=== PATIENT | female | born 1960 | race American Indian/Alaskan Native ===

== ENCOUNTER 2017-01-05 12:57 | Outpatient (CLI) | payer OTHER ==
--- NOTE | 2017-01-05 15:52 | Mammography Report ---
Screening mammogram: Routine views demonstrates an intermediate fibroglandular density pattern which is symmetric in distribution. In the central left breast there is a grouping of calcifications in a linear distribution. Calcifications are minimally pleomorphic. No soft tissue component. The findings are otherwise unremarkable bilaterally. No recent prior exam for comparison. CAD used. Impression: Indeterminate left breast calcifications. Recommendation: Magnification views of left breast calcifications. BI-RADS CATEGORY: 0 = Needs additional imaging evaluation ACR BI-RADS MAMMOGRAPHIC CODES: 0 = Needs additional imaging evaluation; 1 = Negative; 2 = Benign; 3 = Probably benign; 4 = Suspicious; 5 = Malignant; 6 = Known biopsy-proven malignancy COMMENT: 1. Dense breast tissue, i.e., adenosis, fibrocystic changes, etc., may obscure an underlying neoplasm. 2. Approximately 10% of cancers are not detected with mammography. 3. A negative mammography report should not delay biopsy if a clinically suspicious mass is present.
== END 2017-01-05 12:58 | disposition home or self-care (01) ==
LOC: SPVWC 12:57
DX: Z12.31 Encounter for screening mammogram for malignant neoplasm of breast (principal)
CPT/HCPCS: 77067; G0202